=== PATIENT | female | born 1995 | race African-American/Black ===

== ENCOUNTER 2022-03-02 13:36 | Emergency (ER) | payer SELFPAY ==
[2022-03-02 13:58] VITALS: BP 126/61; PULSE 85; RESP 18; TEMP 36.7; O2SAT 100
[2022-03-02 14:30] LABS: Basophils Percent Auto 0.3 % (0.2-1.2); Eosinophils Absolute Auto 0.1 K/mm3 (0-0.3); Eosinophils Percent Auto 0.6 % (0-4.4); Hematocrit 30.4 % (37.0-47.0); Hemoglobin 8.9 g/dL (12.0-15.0); Immature Granulocyte Absolute 0.02 K/mm3 (0.00-0.031); Immature Granulocyte Percent A 0.3 % (0-0.5); Lymphocytes Absolute Auto 2.33 K/mm3 (0.9-3.2); Mean Corpuscular HGB Conc 29.3 g/dl (32-36); Mean Corpuscular Hemoglobin 22.7 pg (26-34); Mean Corpuscular Volume 77.6 fl (80-100); Mean Platelet Volume 10.6 fl (7.4-10.4); Monocytes Absolute Auto 0.4 K/mm3 (0.1-0.6); Monocytes Percent Auto 5.7 % (2.6-8.5); Neutrophils Absolute Auto 4.9 K/mm3 (1.3-6.7); Neutrophils Percent Auto 63.1 % (45.5-73.1); Platelet Count Result 364 k/mm3 (150-375); Red Blood Count 3.92 M/mm3 (4.2-5.4); Red Cell Distribution Width 17.9 % (11.5-14.5); White Blood Count 7.8 K/mm3 (4.5-10.0)
[2022-03-02 14:47] LABS: Platelet Estimate Adequate (Adequate)
[2022-03-02 14:48] LABS: Anisocytosis 2+ (NORMAL); Hypochromasia 1+ (NORMAL)
[2022-03-02 14:50] LABS: Ovalocytes 1+ (NORMAL)
--- NOTE | 2022-03-02 15:40 | PC.NURSE ---
pt approached intake desk and states she is leaving
== END 2022-03-02 15:57 | disposition left against medical advice (07) ==
LOC: ANHED 15:57
PROVIDERS: Emergency Medicine
DX: N93.9 Abnormal uterine and vaginal bleeding, unspecified (principal)
CPT/HCPCS: 36415; 84702; 85025; 85461; 99199

== ENCOUNTER 2023-05-14 12:22 | Emergency (ER) | payer SELFPAY ==
[2023-05-14 12:28] VITALS: BP 113/67; PULSE 82; RESP 16; TEMP 36.6; O2SAT 100
--- NOTE | 2023-05-14 13:35 | PC.NURSE ---
Pt seen leaving the ED.
== END 2023-05-14 13:35 | disposition left against medical advice (07) ==
LOC: ANHED 13:43
DX: Z04.1 Encounter for examination and observation following transport accident (principal)
CPT/HCPCS: 99199

== ENCOUNTER 2023-11-21 23:48 | Inpatient (IN) | payer OTHER, SELFPAY ==
[2023-11-22] VITALS (237 sets, daily range): BP systolic 72–128; BP diastolic 29–100; PULSE 66–146; RESP 18; TEMP 36.5–36.9; O2SAT 95–100; BMI 42.0
--- NOTE | 2023-11-22 00:17 | LDADM ---
This patient, Ada Magallanes, was admitted to Labor/Delivery/Recovery 105 on 11/21/23 at 23:48. Plans for labor, pain management and were discussed with patient. Patient/family oriented to hospital policies and general routines including ID bracelet, bed and alarms, visiting hours, pain management, procedures, bathroom and other care routines, personal items, smoking policy, room service/diet and guest tray routines, security routines, and visiting hours. Patient/Family are encouraged to report perceived risks to care and to ask questions if they do not understand what they are told or what they should do. See OBIX for further documentation.
[2023-11-22 00:47] LABS: Basophils Percent Auto 0.1 % (0.2-1.2); Eosinophils Absolute Auto 0.1 K/mm3 (0-0.3); Eosinophils Percent Auto 0.7 % (0-4.4); Hematocrit 27.3 % (37.0-47.0); Hemoglobin 8.5 g/dL (12.0-15.0); Immature Granulocyte Absolute 0.02 K/mm3 (0.00-0.031); Immature Granulocyte Percent A 0.2 % (0-0.5); Lymphocytes Absolute Auto 1.85 K/mm3 (0.9-3.2); Lymphocytes Percent Auto 22.1 % (18.3-44.2); Mean Corpuscular HGB Conc 31.1 g/dl (32-36); Mean Corpuscular Hemoglobin 24.9 pg (26-34); Mean Corpuscular Volume 80.1 fl (80-100); Mean Platelet Volume 10.2 fl (7.4-10.4); Monocytes Absolute Auto 0.5 K/mm3 (0.1-0.6); Monocytes Percent Auto 5.8 % (2.6-8.5); Neutrophils Percent Auto 71.1 % (45.5-73.1); Platelet Count Result 277 k/mm3 (150-375); Red Blood Count 3.41 M/mm3 (4.2-5.4); Red Cell Distribution Width 16.2 % (11.5-14.5); White Blood Count 8.4 K/mm3 (4.5-10.0)
[2023-11-22] MEDS: miSOPROStol 25 MCG TABLET 50 MCG PO (00:47)
[2023-11-22 02:53] LABS: HIV 1/2 Ab P24 Ag Result Negative (Negative)
[2023-11-22] MEDS: fentaNYL CITRATE INJ (*CRX) 100 MCG/2 ML VIAL 50 MCG IV PUSH (03:04)
[2023-11-22] MEDS: LACTATED RINGERS 1,000 ML 125 ML IV CONT ×3 (03:39→09:59)
[2023-11-22] MEDS: ONDANSETRON INJ 4 MG/2 ML VIAL IV PUSH (03:40)
--- NOTE | 2023-11-22 04:30 | WPDANESEPP ---
Anes - Eval Pre Procedure Procedure: labor epidural Date/Time: 11/22/23 04:30 Pre Op Diagnosis: IOL Patient Data Age: 28 Gender: F Height: 1.68 m Weight: 118 kg Last Vital Signs Temp 36.5 C 11/22/23 00:44 Pulse 128 H 11/22/23 04:29 BP 107/52 L 11/22/23 04:29 Pulse Ox 99 11/22/23 04:26 Allergies Allergy/AdvReac Type Severity Reaction Status Date / Time No Known Allergies Allergy Verified 11/17/23 14:47 Home Medications Medication Instructions Recorded Confirmed Type albuterol 90 mcg/actuation aerosol 90 mcg inhalation PRN PRN Wheezing 11/17/23 11/17/23 History inhaler vits no.126-ferrous fum 1 tablet PO DAILY 11/17/23 11/17/23 History 28 mg iron-folic acid 800 mcg tablet (Classic ) Laboratory Tests 11/22/23 00:40 WBC 8.4 K/mm3 (4.5-10.0) RBC 3.41 L M/mm3 (4.2-5.4) Hgb 8.5 L g/dL (12.0-15.0) Hct 27.3 L % (37.0-47.0) MCV 80.1 fl (80-100) MCH 24.9 L pg (26-34) MCHC 31.1 L g/dl (32-36) RDW 16.2 H % (11.5-14.5) Plt Count 277 k/mm3 (150-375) MPV 10.2 fl (7.4-10.4) Immature Gran % (Auto) 0.2 % (0-0.5) Neut % (Auto) 71.1 % (45.5-73.1) Lymph % (Auto) 22.1 % (18.3-44.2) [place] % (Auto) 5.8 % (2.6-8.5) Eos % (Auto) 0.7 % (0-4.4) Baso % (Auto) 0.1 L % (0.2-1.2) Lymph # (Auto) 1.85 K/mm3 (0.9-3.2) [place] # (Auto) 0.5 K/mm3 (0.1-0.6) Eos # (Auto) 0.1 K/mm3 (0-0.3) Baso # (Auto) 0.0 K/mm3 (0.0-0.1) Abs Immat Gran (auto) 0.02 K/mm3 (0.00-0.031) Absolute Neuts (auto) 6.0 K/mm3 (1.3-6.7) Absolute Nucleated RBC 0.000 K/mm3 (0.0-0.012) Nucleated RBC % 0.0 % (0.0-0.2) RPR Pending HIV 1&2 Ab/P24 Ag 4thGn Negative (Negative) Blood Type A Positive Antibody Screen Negative Patient hx anesthesia problems: none Family hx anesthesia problems: none Results Review: All pre-operative results and documents have been reviewed as part of the pre-operative evaluation. [facility], [facility] Past Medical History Medical History (Updated 11/22/23 @ 04:30 by Patricia Abernathy CRNA) Obese Family History Family History Sibling Sickle cell anemia Other Asthma Sickle-cell trait Social History Social History Smoking status: Never smoker Substance use: never Do You Feel Safe in your Home?: Yes Lack of Transportation: YES Lack of Food: Never True Current Housing: I Have Housing Concerned About Future Housing: No Difficulty Paying Gas/Electric Bills: No Difficulty Paying for Meds: No Currently Unemployed: No Education: High School Diploma/GED Difficulty w/ Childcare or Family Care: No Spiritual care concerns: No Exam Day of Procedure 11/22/23 04:30 Patient weight: obese Heart: regular rate and rhythm Lungs: normal air movement Airway: Mallampati scale Neurological: alert and oriented
[2023-11-22] MEDS: PHENYLEPHRINE 1,000 MCG/10 ML SYRINGE 100 MCG IV PUSH (04:57)
--- NOTE | 2023-11-22 08:28 | WPDHPUPDATE1 ---
History and Physical Update Update Date/Time: 11/22/23 08:28 28-year-old multiparous female at term who presents for elective induction. Has occasional heart rate deceleration and diminished variability. For the last hour or more there has been reassuring of status. We will move forward. We ruptured membranes. There is meconium. She is 3 cm, 50%, -2. IUPC was placed. History and Physical has been reviewed, including an updated exam of the patient. There are NO changes in the patient's condition. Risks, benefits, and alternatives have been discussed and questions answered. Patient agrees to proceed with procedure.
[2023-11-22] MEDS: OXYTOCIN 30 UNITS/NS 500 ML 30 UNITS/500 ML BAG IV CONT (11:22)
[2023-11-22 11:51] LABS: Rapid Plasma Reagin Non-Reactive (NonReactive)
--- NOTE | 2023-11-22 15:02 | P.PCNOB_ITS ---
OB - Vaginal Delivery Note Procedure Delivery date: 11/22/23 Induction method: AROM and Per Pitocin Protocol Delivery monitor: External FHT and Internal Uterine Episiotomy description: None Laceration Description: Perineal - 2nd Degree Delivery repair: vicryl Specimen: No Quantitative Blood Loss (ml): 150 Anesthesia type: Epidural Disposition: Floor [place] Baby Date of : 11/22/23 Weeks of gestation at delivery: 39 Weight (pounds): 8 Weight (ounces): 5
[2023-11-22] MEDS: OXYTOCIN 30 UNITS/NS 500 ML 30 UNITS/500 ML BAG 125 UNITS IV CONT (15:16)
[2023-11-22] MEDS: BENZOCAINE 20% AER SPR (*SP) 56 GM CAN 1 SPRAY TOPICAL (15:25)
[2023-11-22] MEDS: IBUPROFEN 600 MG TABLET PO ×2 (15:25→23:20)
[2023-11-22] MEDS: WITCH HAZEL 40 PADS 1 PAD TOPICAL (15:33)
--- NOTE | 2023-11-22 17:36 | OBPPTRN ---
Patient transferred to post room #292 via w/c. Support person present. Oriented to unit, room, information board, rooming in, admission packet and security measures. Patient verbalizes understanding.
[2023-11-22] MEDS: POLYSACCHARIDE IRON COMPLEX 150 MG CAPSULE PO (19:30)
[2023-11-23 04:10] VITALS: BP 102/66; PULSE 85; RESP 18; TEMP 36.6
[2023-11-23 07:08] LABS: Hematocrit 25.8 % (37.0-47.0); Hemoglobin 7.9 g/dL (12.0-15.0)
[2023-11-23] MEDS: DOCUSATE SODIUM 100 MG CAPSULE PO (07:33)
[2023-11-23] MEDS: IBUPROFEN 600 MG TABLET PO (07:33)
[2023-11-23] MEDS: MULTIVIT/MIN/PREN/FOL AC/IRON TABLET 1 TAB PO (07:33)
[2023-11-23] MEDS: POLYSACCHARIDE IRON COMPLEX 150 MG CAPSULE PO (07:33)
[2023-11-23] MEDS: SIMETHICONE 80 MG TAB.CHEW PO (07:34)
[2023-11-23 08:25] VITALS: BP 106/72; PULSE 87; RESP 18; TEMP 36.9; O2SAT 98
--- NOTE | 2023-11-23 08:35 | WPDANLDPN2 ---
Anes-Prog Note L&D Date/Time: 11/23/23 08:35 Neuro status: Neuro function grossly intact. Cardiovascular status: normal Respiratory status: normal Airway patency: baseline Mental status: baseline Post-Op hydration status: normal Vital Signs: Last Vital Signs Temp 36.6 C 11/23/23 04:10 Pulse 85 11/23/23 04:10 Resp 18 11/23/23 04:10 BP 102/66 11/23/23 04:10 Pulse Ox 97 11/22/23 17:09 O2 Del Method Room Air 11/22/23 19:00 Pain score (VAS): 0 I/O: Intake & Output 11/22/23 11/23/23 11/23/23 23:59 07:59 15:59 Output Total 50 Balance -50 Post-procedural complaints: none Patient feedback: Patient satisfied with anesthetic care.
--- NOTE | 2023-11-23 08:43 | PM.OBPNVD ---
OB - PN: Subj Subjective Date/time seen: 11/23/23 08:43 Patient comments: no complaints, pain well controlled, incisional pain, tolerating diet and flatus present OB - PN: Obj Data Labs 11/23/23 06:57 Labs: Laboratory Results - last 24 hr 11/22/23 11/23/23 00:40 06:57 Hgb 7.9 L Hct 25.8 L RPR Non-reactive OB - PN A/P Plan day: 1 Plan: routine care Comments: No problems, routine care Time Spent With Patient Time: Total time spent is greater than 50% in coordination of care (as documented) at patient's floor/unit and/or counseling patient: Exam Const: General: comfortable, no acute distress and alert Resp: Effort & Inspection: normal respiratory effort Auscultation: no crackles, no rales and no rhonchi Cardio: Rate: regular rate Heart sounds: no click, no murmurs and no rubs GI: Inspection: non-distended GI Palp: No Tenderness to palpation present (GI) Auscultation: normal bowel sounds Other: Incision - CDI Extrem: General: normal to inspection, no pedal edema and no calf tenderness
--- NOTE | 2023-11-23 08:45 | P.DS_ITS ---
DS: Admitting Diagnosis Discharge Date 11/23/23 Admitting Diagnosis Term DS: Discharge Diagnosis Discharge Diagnosis (1) Post term , delivered: Code(s): O48.0 - Post-term Status: Acute Plan term , delivered OB - DS: Summary OB Procedures : None OB Procedures Intrapartum: Spontaneous Vag Delivery OB Procedures: : None Peripartum Data Laceration Description: Perineal - 2nd Degree Episiotomy description: None Time Spent with Patient Time attestation: Total time spent providing and/or coordinating discharge services: DS: Data Data Completed and Pending Labs on day of discharge: Labs from last 24 hours 11/23/23 11/22/23 06:57 00:40 Hgb 7.9 L Hct 25.8 L RPR Non-reactive Discharge Plan Discharge Discharging Clinician: Rasheed Baumann Patient Disposition: Home, Self-Care Activity: pelvic rest Diet: regular Patient Instructions: Antibiotic Form Stand Alone Forms: General Discharge Information Follow-up/Referrals: Rasheed Baumann MD [Physician] - Discharge Medications: Continued Classic 28 mg iron- 800 mcg Tablet 1 tablet PO DAILY albuterol 90 mcg/actuation Aerosol 90 mcg INHALATION PRN PRN (Reason: Wheezing) Date of admission: 11/21/23 23:48 Primary Care Provider: PHYSICIAN,WELDING MACHINE OPERATOR [employer] Admitting Provider: Rasheed Baumann Attending physician on admission: Rasheed Baumann Condition: Stable
[2023-11-23 11:35] VITALS: BP 107/61; PULSE 90; RESP 16; TEMP 36.6; O2SAT 98
== END 2023-11-23 15:47 | disposition home or self-care (01) | DRG 560 ==
LOC: ANHLDR 23:57 → ANHOB2 11-22 17:50
PROVIDERS: Admitting Provider Obstetrics & Gynecology; Visit Provider Obstetrics & Gynecology
DX: O76 Abnormality in fetal heart rate and rhythm complicating labor and delivery (principal); O77.0 Labor and delivery complicated by meconium in amniotic fluid; O70.1 Second degree perineal laceration during delivery; O69.81X0 Labor and delivery complicated by cord around neck, without compression, not applicable or unspecified; Z3A.39 39 weeks gestation of pregnancy; Z37.0 Single live birth
CPT/HCPCS: 36415; 85014; 85018; 85025; 86592; 86703; 86850; 86900; 86901; A9270; G0432; J2371; J2405; J2590; J2795; J3010; J7120